=== PATIENT | female | born 1995 | race Caucasian/White ===

== ENCOUNTER 2018-10-20 17:52 | Emergency (ER) | payer BC ==
[2018-10-20] MEDS ORDERED: NS 1,000 ML IV ONE (18:37)
[2018-10-20 18:45] LABS: PLATELET COUNT 290 10^3/uL (150-400)
[2018-10-20] MEDS ORDERED: IOPAMIDOL (ISOVUE-300) 100 ML BTL ONE (20:46)
--- NOTE | 2018-10-20 21:08 | EDPHY ---
H & P Stated Complaint: abd pain/from UC Time Seen by Provider: 10/20/18 18:28 HPI/ROS: Chief complaint: Abdominal pain History of present illness: This is a 23-year-old female who presents to the emergency department for evaluation of abdominal pain. She describes a soreness in the right, lower aspect of her abdomen and right side of her pelvis for the last week. It is mild in nature. However it is persistent and has become bothersome. She has had slight nausea but no vomiting. She denies precipitating factors. She denies alleviating factors. She denies other associated signs or symptoms including fevers, no urinary symptoms, no abnormal vaginal discomfort to discharge, no diarrhea or constipation. Review of systems: A 10 point review of systems was obtained and other than described above was negative - Personal History LMP (Females 10-55): Now Current Tetanus/Diphtheria Vaccine: Yes - Medical/Surgical History Hx Asthma: No Hx Chronic Respiratory Disease: No Hx Diabetes: No Hx Cardiac Disease: No Hx Renal Disease: No Hx Cirrhosis: No Hx Alcoholism: No - Social History Smoking Status: Never smoked - Physical Exam Exam: General Appearance: Alert, nontoxic. Eyes: Pupils equal and round no pallor or injection. ENT, Mouth: Mucous membranes moist. Respiratory: There are no retractions, lungs are clear to auscultation. Cardiovascular: Regular rate and rhythm. Gastrointestinal: Bowel sounds are normal. Abdomen is soft and nondistended. Mild tenderness the right lower quadrant including over McBurney's point and the right anterior pelvis. The rest the abdomen is nontender. There is no guarding. Neurological: Alert and oriented x4. Skin: Warm and dry, no rashes. Musculoskeletal: Neck is supple non tender. Extremities are symmetrical, full range of motion. Psychiatric: Patient is oriented X 3, there is no agitation. Constitutional: Initial Vital Signs Temperature (C) 36.8 C 10/20/18 17:54 Heart Rate 96 10/20/18 17:54 Respiratory Rate 16 10/20/18 17:54 Blood Pressure 139/98 H 10/20/18 17:54 O2 Sat (%) 98 10/20/18 17:54 O2 Delivery Mode Room Air Allergies/Adverse Reactions: No Known Allergies Allergy (Unverified 10/20/18 17:56) Home Medications: Medication Instructions Recorded Carmella 28 Tablet 10/20/18 Medical Decision Making - Diagnostics Imaging Results: Imaging Impressions Abdomen Ultrasound 10/20/18 18:38 Impression: Appendix not identified. Consider additional CT imaging, if clinically indicated. Findings and recommendations discussed with emergency department physician material assistant, Pankaj Amor PA-C at 1941 hours on October 20, 2018. Final report concurs with initial preliminary interpretation. Pelvic/Renal Ultrasound 10/20/18 18:38 Impression: Normal ultrasound pelvis. Findings and recommendations given to SMILEY Lei at 19:43 hour, 10/20/2018. Final report concurs with initial preliminary interpretation. Abdomen CT 10/20/18 20:40 Impression: 1. Benign right ovarian dermoid measuring 12 x [address] evidence of appendicitis, abscess or bowel obstruction. 3. Constipation without bowel obstruction or colitis. Findings and recommendations discussed with Emergency Department physician, SMILEY Lei at 21:00 hour, 10/20/2018. Final report concurs with initial preliminary interpretation. Imaging: Discussed imaging studies w/ waitstaff captain Radiologist ED Course/Re-evaluation: Patient seen under the supervision of my primary supervising physician Dr. Carmina Phelps. Patient presents to the emergency department with 1 week history of right lower abdominal pain. She is nontoxic. Tenderness in the right lower abdomen and right anterior pelvis. No peritoneal signs. Serial abdominal exams were performed and remained benign in the emergency room. Evaluation was largely unremarkable, blood studies unremarkable. Urinalysis likely contaminant. Ultrasound unremarkable. Given persistent pain and tenderness at McBurney's point CT scan was obtained and did identify dermoid ovarian cysts. Believe patient is safe for discharge home. Home care is discussed. She is to follow up with [facility] this week for recheck. Return precautions are given. The patient voiced understanding and agreement with plan. Differential Diagnosis: Included but not limited to constipation, colitis, appendicitis, diverticulitis , ovarian cyst with associated complications, with associated complications, urinary tract disease - Data Points Laboratory Results: Laboratory Results 10/20/18 18:35 10/20/18 18:35 10/20/18 10/20/18 10/20/18 19:43 18:35 18:35 WBC RBC Hgb Hct MCV MCH MCHC RDW Plt Count MPV Neut % (Auto) Lymph % (Auto) [place] % (Auto) Eos % (Auto) Baso % (Auto) Nucleat RBC Rel Count Absolute Neuts (auto) Absolute Lymphs (auto) Absolute Monos (auto) Absolute Eos (auto) Absolute Basos (auto) Absolute Nucleated RBC Immature Gran % Immature Gran # Sodium 137 mEq/L mEq/L (135-145) Potassium 3.7 mEq/L mEq/L (3.5-5.2) Chloride 100 mEq/L mEq/L (97-110) Carbon Dioxide 22 mEq/l mEq/l (22-31) Anion Gap 15 mEq/L H mEq/L (6-14) BUN 9 mg/dL mg/dL (7-23) Creatinine 0.6 mg/dL mg/dL (0.6-1.0) Estimated GFR > 60 Glucose 120 mg/dL H mg/dL (70-100) Calcium 10.1 mg/dL mg/dL (8.5-10.4) Beta HCG, Qual NEGATIVE Urine Color PALE YELLOW Urine Appearance CLEAR Urine pH 6.0 (5.0-7.5) Ur Specific [place] 1.005 (1.002-1.030) Urine Protein NEGATIVE (NEGATIVE) Urine Ketones NEGATIVE (NEGATIVE) Urine Blood NEGATIVE (NEGATIVE) Urine Nitrate NEGATIVE (NEGATIVE) Urine Bilirubin NEGATIVE (NEGATIVE) Urine Urobilinogen NEGATIVE EU EU (0.2-1.0) Ur Leukocyte Esterase NEGATIVE (NEGATIVE) Urine RBC NONE SEEN /hpf /hpf (0-3) Urine WBC 1-3 /hpf /hpf (0-3) Ur Epithelial Cells TRACE /lpf /lpf (NONE-1+) Urine Bacteria 3+ /hpf H /hpf (NONE SEEN) Urine Mucus TRACE /lpf /lpf (NONE-1+) Urine Glucose NEGATIVE (NEGATIVE) 10/20/18 18:35 WBC 8.84 10^3/uL 10^3/uL (3.80-9.50) RBC 4.94 10^6/uL 10^6/uL (4.18-5.33) Hgb 14.6 g/dL g/dL (12.6-16.3) Hct 43.5 % % (38.0-47.0) MCV 88.1 fL fL (81.5-99.8) MCH 29.6 pg pg (27.9-34.1) MCHC 33.6 g/dL g/dL (32.4-36.7) RDW 12.1 % % (11.5-15.2) Plt Count 290 10^3/uL 10^3/uL (150-400) MPV 10.5 fL fL (8.7-11.7) Neut % (Auto) 58.5 % % (39.3-74.2) Lymph % (Auto) 33.3 % % (15.0-45.0) [place] % (Auto) 6.4 % % (4.5-13.0) Eos % (Auto) 1.0 % % (0.6-7.6) Baso % (Auto) 0.7 % % (0.3-1.7) Nucleat RBC Rel Count 0.0 % % (0.0-0.2) Absolute Neuts (auto) 5.17 10^3/uL 10^3/uL (1.70-6.50) Absolute Lymphs (auto) 2.94 10^3/uL 10^3/uL (1.00-3.00) Absolute Monos (auto) 0.57 10^3/uL 10^3/uL (0.30-0.80) Absolute Eos (auto) 0.09 10^3/uL 10^3/uL (0.03-0.40) Absolute Basos (auto) 0.06 10^3/uL 10^3/uL (0.02-0.10) Absolute Nucleated RBC 0.00 10^3/uL 10^3/uL (0-0.01) Immature Gran % 0.1 % % (0.0-1.1) Immature Gran # 0.01 10^3/uL 10^3/uL (0.00-0.10) Sodium Potassium Chloride Carbon Dioxide Anion Gap BUN Creatinine Estimated GFR Glucose Calcium Beta HCG, Qual Urine Color Urine Appearance Urine pH Ur Specific [place] Urine Protein Urine Ketones Urine Blood Urine Nitrate Urine Bilirubin Urine Urobilinogen Ur Leukocyte Esterase Urine RBC Urine WBC Ur Epithelial Cells Urine Bacteria Urine Mucus Urine Glucose Medications Given: Discontinued Medications Sodium Chloride (Ns) 1,000 mls @ 0 mls/hr IV EDNOW ONE; Wide Open PRN Reason: Protocol Stop: 10/20/18 18:38 Last Admin: 10/20/18 18:45 Dose: 1,000 mls Departure - Departure Disposition: Home, Routine, Self-Care Clinical Impression: Abdominal pain Qualifiers: Abdominal location: right lower quadrant Qualified Code(s): R10.31 - Right lower quadrant pain Ovarian cyst Qualifiers: Laterality: right Qualified Code(s): N83.201 - Unspecified ovarian cyst, right side Condition: Good Instructions: Ovarian Cyst (ED), Acute Abdominal Pain (ED) Additional Instructions: Follow-up with your primary care doctor this week for recheck Use ibuprofen 600 mg 3 times a day for the next 2-3 days for pain control If symptoms worsen or new symptoms develop return to the emergency department for recheck Referrals: NONE *PRIMARY CARE P,. [Primary Care Provider] - As per Instructions [facility] [Clinic] - As per Instructions
[2018-10-20 21:58] VITALS: BP 110/73
== END 2018-10-20 21:58 | disposition home or self-care (01) ==
DX: R10.31 Right lower quadrant pain (principal); N83.201 Unspecified ovarian cyst, right side; K59.00 Constipation, unspecified; E86.9 Volume depletion, unspecified
CPT/HCPCS: Q9967